=== PATIENT | male | born 1975 | race Caucasian/White ===

== ENCOUNTER → 2020-06-23 09:38 | Outpatient (BNVA) | payer OTHER, SELFPAY | PROVIDERS: PCP Family Medicine; Referring Provider Family Medicine; Visit Provider Specialist | DX: M25.561 Pain in right knee (principal); M25.562 Pain in left knee | CPT/HCPCS: 73560; 73565 ==

== ENCOUNTER 2020-08-19 10:50 | Outpatient (CLI) | payer OTHER, SELFPAY ==
--- NOTE | 2020-08-19 11:00 | MR_ITS ---
WS: [id number] MRI RIGHT KNEE NONCONTRAST TECHNIQUE: Axial PD, coronal PD fat sat, coronal PD, sagittal PD, and sagittal PD fat-sat images obta ined. CLINICAL INFORMATION: M25.569 - Pain in unspecified knee COMPARISON: None. FINDINGS: Distal quadriceps and patella tendons are intact. Normal anterior and posterior cruciate ligaments. N ormal medial and lateral meniscus. No acute appearing meniscal tears. 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 No subchondral edema. Medial a nd lateral collateral ligaments are normal in appearance. Normal bone marrow signal in the distal fem oral condyles and tibial plateau. Mild chondromalacia involving the medial and lateral joint compartm ents. MR/MR knee RT wo con* [id number] IMPRESSION: 1. Normal anterior and posterior cruciate ligaments. 2. Normal medial and lateral meniscus. No acute meniscal tears. 3. 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 4. Normal medial and lateral collateral ligaments. Outbridge grading: grade I: focal areas of hyperintensity with normal contour
--- NOTE | 2020-08-19 11:14 | XR_ITS ---
WS: [id number] ORBITS TECHNIQUE: 4 views of the orbits CLINICAL INFORMATION: M25.569 - Pain in unspecified knee COMPARISON: None. FINDINGS: Pre-MRI. No radiopaque foreign objects. No suspicious abnormalities. XR/[place] [id number] IMPRESSION: No radiopaque foreign objects
== END 2020-08-19 10:51 | disposition home or self-care (01) ==
PROVIDERS: PCP Family Medicine; Visit Provider Specialist
DX: M25.561 Pain in right knee (principal); M22.41 Chondromalacia patellae, right knee
CPT/HCPCS: 70200; 73721

== ENCOUNTER → 2021-06-08 14:59 | Outpatient (BNVA) | payer OTHER, SELFPAY | PROVIDERS: PCP Family Medicine; Referring Provider Family Medicine; Visit Provider Podiatrist Foot & Ankle Surgery | DX: Q82.8 Other specified congenital malformations of skin (principal); M21.41 Flat foot [pes planus] (acquired), right foot; M21.42 Flat foot [pes planus] (acquired), left foot; L60.3 Nail dystrophy; F17.210 Nicotine dependence, cigarettes, uncomplicated | CPT/HCPCS: 17110; 99203; 99204 ==

== ENCOUNTER → 2021-08-20 13:37 | Outpatient (BNVA) | payer OTHER, SELFPAY | PROVIDERS: PCP Family Medicine; Visit Provider Podiatrist Foot & Ankle Surgery | DX: B35.3 Tinea pedis (principal); M21.41 Flat foot [pes planus] (acquired), right foot; M21.42 Flat foot [pes planus] (acquired), left foot; Q82.8 Other specified congenital malformations of skin; L60.3 Nail dystrophy | CPT/HCPCS: 99213; 99214 ==

== ENCOUNTER 2023-03-31 12:34 | Outpatient (CLI) | payer OTHER, SELFPAY ==
--- NOTE | 2023-03-31 | ECG_ITS ---
[facility] Test Date: 2023-03-31 Pat Name: Berta Live Department: Room: Gender: Male Account Developer: Kathy Vaughn : 1975 Requested By: Maria R Ramachandran Order Number: [id number] Cheryl MD: Robin Dickerson M.D. Interpretive Statements NAME OF STUDY: TREADMILL STRESS TEST INDICATION: CP/HLD, PROCEDURE: At the baseline, the patient's blood pressure was 124/71 with a heart rate of 77. The baseline electrocardiogram showed normal sinus rhythm with normal ST-Ts. Poor R wave progression. The patient exercised for 7 minutes and 53 seconds on a standard Aubrey protocol. Patient attained a maximum heart rate of 153 beats per minute(87% of the maximum predicted heart rate) with a blood pressure at the peak exercise of 217/80 mm Hg. The EKG at the peak exercise revealed no significant changes. Patient did not have any chest pain or any significant cardiac arrhythmias with the exercise During the recovery phase, there were no new changes. Blood pressure at the end of the recovery phase was 127/80 mm Hg with a heart rate of 91 per minute. CONCLUSION: 1. No significant EKG changes with the treadmill exercise 2. No exercise-induced chest pain or cardiac arrhythmia 3. Fair exercise tolerance, attained a maximum of 10.2 METs 4. Hypertensive response to exercise Electronically Signed On 04-02-2023 15:11:21 INDUSTRIAL TECHNICIAN by Robin Dickerson M.D. [email or web address]
[2023-03-31 12:39] VITALS: BMI 29.8
[2023-03-31 13:31] VITALS: BP 127/80; PULSE 92
--- NOTE | 2023-03-31 13:31 | USCV_ITS ---
Berta Live Age: 48 Gender: M : 1975 Exam Date: 03/31/2023 13:34 Ordering Phys: Maria R Ramachandran MD Technologist: Exam Location: [facility] [place] Indication: cardiomyopath BP: 120 / 70 HR: 0 Rhythm: Sinus Technical Quality: Adequate MEASUREMENTS (Male / Female) Normal Values 2D ECHO LV Diastolic Diameter PLAX 4.8 cm 4.2 - 5.9 / 3.9 - 5.3 cm IVS Diastolic Thickness 1.2 cm 0.6 - 1.0 / 0.6 - 0.9 cm IVS Systolic Thickness 1.5 cm LVPW Diastolic Thickness 1.0 cm 0.6 - 1.0 / 0.6 - 0.9 cm LVPW Systolic Thickness 1.9 cm LVOT Diameter 2.1 cm LV Ejection Fraction 2D Teich 58.6 % LV Ejection Fraction MOD 2C 68.5 % LV Ejection Fraction 2C AL 0.0 % LA Diameter 3.6 cm IVC Diameter 1.3 cm M-MODE LA Ao Ratio MM 1.3 AV Cusp Separation MM 2.5 cm DOPPLER AV Peak Velocity 102.0 cm/s LVOT Peak Velocity 94.0 cm/s AV Area Cont Eq vti 3.5 cm squared AV Area Cont Eq pk 3.1 cm squared MV Area PHT 4.0 cm squared Mitral E to A Ratio 0.8 TV Peak Velocity 212.0 cm/s TR Peak Velocity 230.0 cm/s TR Peak Gradient 21.2 mmHg TV Peak E Velocity 90.0 cm/s Right Atrial Pressure 3.0 mmHg Pulmonary Artery Systolic Pressu 24.2 mmHg PV Peak Velocity 95.0 cm/s FINDINGS Left Ventricle Left ventricle is normal size. LV systolic function is normal with EF of 55 to 60%. No regional wall motion abnormalities are seen. Grade 1 diastolic dysfunction Right Ventricle Normal in size and function Right Atrium Normal in size Left Atrium Normal in size Mitral Valve Structurally normal mitral valve. Trace mitral regurgitation Aortic Valve Structurally normal aortic valve. Trace aortic regurgitation. No significant stenosis. Tricuspid Valve Mild tricuspid regurgitation. Pulmonary artery systolic pressure is normal. Pulmonic Valve Not well visualized Pericardium Normal Aorta Normal in size IVC Appears to be normal CONCLUSIONS LV systolic function is normal with EF of 55 to 60%. Grade 1 diastolic dysfunction. Trace mitral regurgitation Trace aortic regurgitation Mild tricuspid regurgitation No comparison studies are available. Felix Harmon MD (Electronically Signed) Final Date: 02 April 2023 14:12 S
== END 2023-03-31 12:35 | disposition home or self-care (01) ==
LOC: CDL 12:35
PROVIDERS: PCP Family Medicine; Visit Provider Family Medicine
DX: I07.1 Rheumatic tricuspid insufficiency (principal); E78.5 Hyperlipidemia, unspecified
CPT/HCPCS: 93017; 93306